=== PATIENT | male | born 1985 | race Two or more races ===

== ENCOUNTER 2019-04-23 21:45 | Emergency (ER) | payer OTHER ==
[2019-04-23] MEDS ORDERED: KETOROLAC 60 MG/2 ML VIAL IM STA (21:55)
--- NOTE | 2019-04-23 22:01 | Emergency Department Record ---
History of Present Illness - General Chief Complaint: Hypertension Stated Complaint: HIGH BP, NEW MEDS Time Seen by Provider: 04/23/19 21:55 Source: Patient Mode of Arrival: Ambulatory Limitations: No limitations - History of Present Illness Initial Comments: 33 yo male presents to ED for evaluation of elevated blood pressure this evening, pressure in the left ear, and a throbbing pain behind his left eye. Patient denies change in vision or injury to the affected area, denies fevers, chills, or recent illness. Patient reports that his BP medication as increased 1 week ago, concerned as his BP is still elevated. MD Complaint: Other Onset/Timin -: Days(s) Timing: Constant History of Same: No History of Trauma: No Severity: Moderate Improves With: Nothing Worsens With: Nothing Associated Symptoms: Denies other symptoms - [place] Coma Scale Eye Response: (4) Open spontaneously Motor Response: (6) Obeys commands Verbal Response: (5) Oriented Renetta Total: 15 - Related Data Allergies Allergy/AdvReac Type Severity Reaction Status Date / Time methylphenidate HCl Allergy Severe aggression Unverified 04/04/19 08:08 [From Ritalin] grass pollen Allergy Mild watery Unverified 04/04/19 08:08 eyes/sneezing chlorine Allergy Mild watery Uncoded 03/20/19 07:34 eyes/ sneezing Review of Systems Constitutional: Denies: Chills, Fever, Malaise, Night sweats Eyes: Reports: Other (Throbbing behind the left eye). Denies: Eye discharge, Eye pain ENT: Denies: Congestion, Epistaxis Respiratory: Denies: Cough, Dyspnea Cardiovascular: Denies: Chest pain, Dyspnea on exertion, Edema Endocrine: Denies: Fatigue, Heat or cold intolerance Gastrointestinal: Denies: Abdominal pain, Nausea, Vomiting Genitourinary: Denies: Incontinence, Retention Musculoskeletal: Reports: Arthralgia (Hands bilaterally). Denies: Back pain, Gout, Joint swelling Skin: Denies: Bruising, Change in color Neurological: Reports: Headache. Denies: Abnormal gait, Confusion, Numbness, Seizure Psychiatric: Denies: Anxiety Hematological/Lymphatic: Denies: Anemia, Blood Clots Physical Exam - General General Appearance: Alert, Oriented x3, Cooperative, Mild distress Limitations: No limitations - Head Head exam: Atraumatic, Normocephalic, Normal inspection Head exam detail: negative: Abrasion, Contusion, Dodge's sign, General tenderness, Hematoma, Laceration - Eye Eye exam: Normal appearance, EOMI. negative: Conjunctival injection, Periorbital swelling, Periorbital tenderness, Scleral icterus - ENT Ear exam: negative: Auricular hematoma, Auricular trauma Nasal Exam: negative: Active bleeding, Discharge, Dried blood, Foreign body Mouth exam: negative: Drooling, Laceration, Muffled voice, Tongue elevation - Neck Neck exam: Normal inspection. negative: Meningismus, Tenderness - Respiratory Respiratory exam: Normal lung sounds bilaterally. negative: Rales, Respiratory distress, Rhonchi, Stridor - Cardiovascular Cardiovascular Exam: Regular rate, Normal rhythm, Normal heart sounds - GI/Abdominal GI/Abdominal exam: Soft. negative: Rebound, Rigid, Tenderness - Rectal Rectal exam: Deferred - exam: Deferred - Extremities Extremities exam: Normal inspection. negative: Pedal edema, Tenderness - Back Back exam: Denies: CVA tenderness (R), CVA tenderness (L) - Neurological Neurological exam: Alert, Normal gait, Oriented X3 - Psychiatric Psychiatric exam: Normal affect, Normal mood - Skin Skin exam: Normal color. negative: Abrasion Type of lesion: negative: abrasion Course Vital Signs 04/23/19 21:51 Temperature 98.4 F Pulse Rate [ 118 H Left] Respiratory 16 Rate Blood Pressure 173/105 [Left] Pulse Ox 97 - Reevaluation(s) Reevaluation #1: 04/23/19 22:37 IOP measured 15 in the left (affected eye) Patient reports headache symptoms are improved as well as this time. Awaiting CT Brain interpretation. Reevaluation #2: 04/23/19 23:31 CT Brain: No acute process Repeat BP is 155/96mmHg, pulse 100. Patient reports continued improvement in his headache symptoms. Patient appears stable for discharge at this time with instructions to follow-up with Radha in 1-3 days as directed. Disposition Disposition: Discharge Clinical Impression: Headache Qualifiers: Headache type: unspecified Headache chronicity pattern: acute headache Intractability: not intractable Qualified Code(s): R51 - Headache Hypertension Qualifiers: Hypertension type: unspecified Qualified Code(s): I10 - Essential (primary) hypertension Disposition: Home, Self-Care Condition: (2) Stable Instructions: Hypertension (ED) Additional Instructions: Return to ED if your symptoms worsen or if you have any concerns. Continue home medications as prescribed. Follow-up with Radha Torres in 3-5 days as directed. Forms: Patient Portal Access Time of Disposition: 23:33 Quality - Quality Measures Quality Measures: N/A - Blood Pressure Screening Does Patient Have Any of the Following: Active Dx of HTN Blood Pressure Classification: Hypertensive Reading Systolic Measurement: 173 Diastolic Measurement: 105 Screening for High Blood Pressure: Patient Exclusion, Hx of HTN [G9744]
[2019-04-23] MEDS ORDERED: PROPARACAINE HCL OPTH 15ML BTL OPTH ONE (22:03)
--- NOTE | 2019-04-26 05:46 | CT SCAN REPORT ---
DATE: 04/23/2019. EXAM: CT OF THE BRAIN WITHOUT CONTRAST. HISTORY: HEADACHE. TECHNIQUE: Sequential axial images were obtained from the foramen magna to the vertex without contrast administration. FINDINGS: Brain volume is normal. No large territorial infarct, hemorrhage, mass effect, or midline shift. No extra-axial fluid collection. The orbits, paranasal sinuses, and mastoid air cells are normal. IMPRESSION: NO ACUTE INTRACRANIAL ABNORMALITY IS APPRECIATED. Job Number: [id number] MTDD
== END 2019-04-23 23:42 | disposition home or self-care (01) ==
LOC: ER 21:45
DX: R51 Headache (principal); I10 Essential (primary) hypertension; H57.12 Ocular pain, left eye
CPT/HCPCS: 70450; 96372; 99283; 99284; J1885

== ENCOUNTER 2019-11-24 20:43 | Emergency (ER) | payer OTHER ==
--- NOTE | 2019-11-24 21:05 | Emergency Department Record ---
History of Present Illness - General Chief complaint: Cold Stated complaint: URI Time Seen by Provider: 11/24/19 20:49 Source: Patient Mode of Arrival: Ambulatory Limitations: No limitations - History of Present Illness Initial comments: 34 yo male presents to ED for evaluation of non-productive cough symptoms and congestion for the past several days. Patient denies fevers, chills, or sore throat symptoms. Patient does report numerous ill contacts at home with similar symptoms, patient denies health problems at his baseline. MD complaint: Other Onset/Timin -: Days(s) Location: Nose Severity: Moderate Quality: Aching Consistency: Intermittent Improves with: None Worsens with: None Associated Symptoms: Cough, Rhinorrhea - Related Data Previous Rx's Medication Instructions Recorded Doxycycline Hyclate 100 mg PO BID #14 cap 11/24/19 Prednisone [Prednisone 20Mg] 20 mg PO BID #10 tab 11/24/19 Allergies Allergy/AdvReac Type Severity Reaction Status Date / Time methylphenidate HCl Allergy Severe aggression Unverified 11/15/19 15:03 [From Ritalin] grass pollen Allergy Mild watery Unverified 11/15/19 15:03 eyes/sneezing chlorine Allergy Mild watery Uncoded 03/20/19 07:34 eyes/ sneezing Travel Screening - Travel/Exposure Within Last 30 Days Have you traveled within the last 30 days?: No - Travel/Exposure Within Last Year Have you traveled outside the [place] in the last year?: No - Additonal Travel Details Have you been exposed to anyone with a communicable illness?: No - Travel Symptoms Symptom Screening: None Review of Systems Constitutional: Denies: Chills, Fever, Malaise, Night sweats Eyes: Denies: Eye discharge, Eye pain ENT: Reports: Congestion. Denies: Ear pain, Epistaxis Respiratory: Reports: Cough. Denies: Dyspnea Cardiovascular: Denies: Dyspnea on exertion, Edema Endocrine: Denies: Fatigue, Heat or cold intolerance Gastrointestinal: Denies: Abdominal pain, Nausea, Vomiting Genitourinary: Denies: Incontinence, Retention Musculoskeletal: Denies: Arthralgia, Back pain Skin: Denies: Bruising, Change in color Neurological: Denies: Abnormal gait, Confusion, Headache, Seizure Psychiatric: Denies: Anxiety Hematological/Lymphatic: Denies: Anemia, Blood Clots Past Medical History - SOCIAL HISTORY Smoking Status: Current every day smoker Alcohol Use: Occasional - RESPIRATORY Hx Respiratory Disorders: No - CARDIOVASCULAR Hx Cardio Disorders: Yes Hx Hypertension: Yes - NEURO Hx Neuro Disorders: No - GI Hx GI Disorders: No - Hx Genitourinary Disorders: No - ENDOCRINE Hx Endocrine Disorders: No - MUSCULOSKELETAL Hx Musculoskeletal Disorders: No - PSYCH Hx Psych Problems: No - HEMATOLOGY/ONCOLOGY Hx Hematology/Oncology Disorders: No Family Medical History Any Significant Family History?: Yes *Cancer Comment: Uncle-Prostate Hx Diabetes: Father, Brother/Sister Hx Heart Disease: Father Hx HTN: Father Physical Exam - General General Appearance: Alert, Oriented x3, Cooperative, Mild distress Limitations: No limitations - Head Head exam: Atraumatic, Normocephalic, Normal inspection Head exam detail: negative: Abrasion, Contusion, Dodge's sign, General tenderness, Hematoma, Laceration - Eye Eye exam: Normal appearance. negative: Conjunctival injection, Periorbital swelling, Periorbital tenderness, Scleral icterus - ENT Ear exam: negative: Auricular hematoma, Auricular trauma Nasal Exam: negative: Active bleeding, Discharge, Dried blood, Foreign body Mouth exam: negative: Drooling, Laceration, Muffled voice, Tongue elevation - Neck Neck exam: Normal inspection. negative: Meningismus, Tenderness - Respiratory Respiratory exam: Normal lung sounds bilaterally. negative: Rales, Respiratory distress, Rhonchi, Stridor - Cardiovascular Cardiovascular Exam: Regular rate, Normal rhythm, Normal heart sounds - GI/Abdominal GI/Abdominal exam: Soft. negative: Rebound, Rigid, Tenderness - Rectal Rectal exam: Deferred - exam: Deferred - Extremities Extremities exam: Normal inspection. negative: Pedal edema, Tenderness - Back Back exam: Denies: CVA tenderness (R), CVA tenderness (L) - Neurological Neurological exam: Alert, Normal gait, Oriented X3 - Psychiatric Psychiatric exam: Normal affect, Normal mood - Skin Skin exam: Normal color. negative: Abrasion Type of lesion: negative: abrasion Course Vital Signs 11/24/19 20:52 Pulse Rate 108 H Respiratory 20 Rate Blood Pressure 166/103 Pulse Ox 97 - Reevaluation(s) Reevaluation #1: 11/24/19 21:08 History and examination appear c/w acute bronchitis Will treat with Doxycycline and Prednisone as directed Patient appears stable for discharge at this time. Disposition Disposition: Discharge Clinical Impression: Acute bronchitis Qualifiers: Bronchitis organism: unspecified organism Qualified Code(s): J20.9 - Acute bronchitis, unspecified Disposition: Home, Self-Care Condition: (2) Stable Instructions: Acute Bronchitis (ED) Additional Instructions: Return to ED if your symptoms worsen or if you have any concerns. Doxycycline and Prednisone as directed. Follow-up with your family doctor in 3-5 days as directed. Prescriptions: Doxycycline Hyclate 100 mg PO BID #14 cap Prednisone [Prednisone 20Mg] 20 mg PO BID #10 tab Forms: Patient Portal Access Time of Disposition: 21:05 Quality - Quality Measures Quality Measures: N/A, Adult Bronchitis (18-64yr) - Adult Bronchitis Quality Measure: Measure #116: Avoidance of ABX w/Adult Bronchitis ICD10 Codes Entered: Yes Is patient being admitted: Yes Avoidance of ABX w/Bronchitis: <ABX neither prescribed nor dispensed> [4124F] - Blood Pressure Screening Does Patient Have Any of the Following: No Blood Pressure Classification: Hypertensive Reading Systolic Measurement: 166 Diastolic Measurement: 103 Screening for High Blood Pressure: < First Hypertensive BP, F/U Documented > [G8950] First Hypertensive Follow-up Interventions: Referral to alternative/primary care provider.
== END 2019-11-24 21:15 | disposition home or self-care (01) ==
LOC: ER 20:43
DX: J20.9 Acute bronchitis, unspecified (principal); F17.210 Nicotine dependence, cigarettes, uncomplicated
CPT/HCPCS: 99283

== ENCOUNTER 2020-01-10 16:17 | Emergency (ER) | payer OTHER ==
[2020-01-10] MEDS ORDERED: 0.9 % SODIUM CHLORIDE 1,000 ML BAG IV ONE (16:34)
[2020-01-10] MEDS ORDERED: ONDANSETRON HCL IV 4 MG/2 ML VIAL IV ONE (16:34)
[2020-01-10] MEDS ORDERED: ACETAMINOPHEN 1,000 MG/100 ML BTL IVPB ONE (16:34)
--- NOTE | 2020-01-10 16:42 | Emergency Department Record ---
History of Present Illness - General Chief Complaint: Abdominal Pain Stated Complaint: LOWER ABD PAIN Time Seen by Provider: 01/10/20 16:26 Source: Patient Mode of Arrival: Ambulatory Limitations: No limitations - History of Present Illness Initial Comments: The patient is here due to LLQ AP for about 24 hours. The pain is sharp and aching and is worse with hitting bumps in the road and sudden movements. The patient denies any nausea or vomiting but he did have some loose stools yesterday. There also has been no fever, dysuria, or back pain. The patient has no hx of similar issues and no hx of any medical problems. MD Complaint: Abdominal pain Onset/Timin -: Days(s) Location: LLQ Radiation: Suprapubic Improves With: Nothing Worsens With: Nothing - Related Data Previous Rx's Medication Instructions Recorded Hydrocodone/Acetaminophen [[place] 1 each PO .EVERY 4-6 HRS PRN #12 01/10/20 5-325 Tablet] tablet Allergies Allergy/AdvReac Type Severity Reaction Status Date / Time methylphenidate HCl Allergy Severe aggression Verified 01/10/20 16:35 [From Ritalin] grass pollen Allergy Mild watery Verified 01/10/20 16:35 eyes/sneezing chlorine Allergy Mild watery Uncoded 01/10/20 16:35 eyes/ sneezing Travel/Exposure Screening - Travel/Exposure Within Last 30 Days Have you traveled within the last 30 days?: No - Travel/Exposure Within Last Year Have you traveled outside the [place] in the last year?: No - Additonal Travel/Exposure Details Have you been exposed to anyone with a communicable illness?: No - Travel Symptoms Symptom Screening: None Review of Systems Constitutional: Denies: Chills, Fever Eyes: Denies: Eye discharge ENT: Denies: Congestion Respiratory: Denies: Cough Past Medical History - SOCIAL HISTORY Smoking Status: Current every day smoker Alcohol Use: Occasional Drug Use: None - RESPIRATORY Hx Respiratory Disorders: No - CARDIOVASCULAR Hx Cardio Disorders: Yes Hx Hypertension: Yes - NEURO Hx Neuro Disorders: No - GI Hx GI Disorders: No - Hx Genitourinary Disorders: No - ENDOCRINE Hx Endocrine Disorders: No - MUSCULOSKELETAL Hx Musculoskeletal Disorders: No - PSYCH Hx Psych Problems: No - HEMATOLOGY/ONCOLOGY Hx Hematology/Oncology Disorders: No Family Medical History Any Significant Family History?: No *Cancer Comment: Uncle-Prostate Hx Diabetes: Father, Brother/Sister Hx Heart Disease: Father Hx HTN: Father Physical Exam - General General Appearance: Alert, Oriented x3, Cooperative, No acute distress - Head Head exam: Atraumatic, Normocephalic, Normal inspection - Eye Eye exam: Normal appearance, PERRL - Neck Neck exam: Normal inspection, Full ROM. negative: Tenderness - Respiratory Respiratory exam: Normal lung sounds bilaterally. negative: Respiratory distre ss - Cardiovascular Cardiovascular Exam: Regular rate, Normal rhythm, Normal heart sounds - GI/Abdominal GI/Abdominal exam: Soft, Normal bowel sounds, Tenderness (There is mild LLQ tenderness to palpation with a very soft abdomen.). negative: Distended, Guarding, Rebound, Rigid - exam: Circumcision. negative: Scrotal swelling, Testicular tenderness - Extremities Extremities exam: Normal inspection, Full ROM, Normal capillary refill. negative: Tenderness Course Vital Signs 01/10/20 16:24 Temperature 98.1 F Pulse Rate 91 H Respiratory 20 Rate Blood Pressure 180/103 Pulse Ox 99 - Reevaluation(s) Reevaluation #1: The patient is doing a lot better at this time and is in much less pain. His repeat temp was 98.4 and on exam his abdomen is soft and nontender. I did discuss the options of staying in the hospital for pain medicines overnight but he would like to go home. Since he received Invanze he does not need any more antibiotics until tomorrow. We will discharge the patient and give him [place] overnight for pain and will have him return at noon tomorrow for recheck of his abdomen and repeat lab work. 01/10/20 18:25 Medical Decision Making - Data Complexity MDM Data: Labs Ordered and/or Reviewed, X-Ray Ordered and/or Reviewed - Lab Data Result diagrams: 01/10/20 16:30 01/10/20 16:30 - Radiology Data Radiology results: Report reviewed (CT: Diverticulitis L colon. Neg for perforation or free air.) Disposition Disposition: Discharge Clinical Impression: Diverticulitis large intestine Qualifiers: Diverticulitis bleeding: without bleeding Diverticulitis complication: without perforation or abscess Qualified Code(s): K57.32 - Diverticulitis of large intestine without perforation or abscess without bleeding Disposition: Home, Self-Care Condition: (2) Stable Instructions: Diverticulitis (ED) Additional Instructions: Please take Motrin and [place] for pain with a stool softener. Please rest and take tomorrow off work and return to the ER at noon for recheck and repeat IV Abx's. Return sooner for worsening pain, fever, vomiting, or bleeding. Prescriptions: Hydrocodone/Acetaminophen [[place] 5-325 Tablet] 1 each PO .EVERY 4-6 HRS PRN #12 tablet PRN Reason: Pain Forms: Patient Portal Access Time of Disposition: 18:30 Quality - Quality Measures Quality Measures: Adult Bronchitis (18-64yr) - Adult Bronchitis Quality Measure: Measure #116: Avoidance of ABX w/Adult Bronchitis ICD10 Codes Entered: Yes View Details: Yes Is patient being admitted: No Avoidance of ABX w/Bronchitis: <ABX neither prescribed nor dispensed> [4124F] - Blood Pressure Screening View Details: Yes Does Patient Have Any of the Following: Active Dx of HTN Blood Pressure Classification: Hypertensive Reading Systolic Measurement: 180 Diastolic Measurement: 103 Screening for High Blood Pressure: Patient Exclusion, Hx of HTN [G9744]
[2020-01-10 16:55] LABS: ABSOLUTE NEUTROPHIL COUNT 9.77; BASO % 0.3 % (0-6); EOS % 1.3 % (0-6); GRAN % 65.7 % (47-80); HEMATOCRIT 45.2 % (42.0-52.0); HEMOGLOBIN 14.8 gm/dl (14.0-18.0); LYMPH % 22.4 % (16-45); MEAN CELL VOLUME 92.6 fl (81-97); MEAN CORPUSCULAR HEMOGLOBIN 30.3 pg (27-33); MEAN CORPUSCULAR HGB CONC 32.7 g/dl (32-36); MEAN PLATELET VOLUME 9.8 fl (7.4-10.4); MONO % 10.3 % (0-9); PLATELET COUNT 298 K/uL (130-400); RED BLOOD COUNT 4.88 M/uL (4.40-5.70); RED CELL DISTRIBUTION WIDTH 13.4 % (11.5-14.5); WHITE BLOOD COUNT W/O DIFF 14.9 K/uL (4.2-12.2)
[2020-01-10 17:02] LABS: URINE APPEARANCE CLEAR; URINE BILIRUBIN NEGATIVE (NEGATIVE); URINE BLOOD SMALL (NEGATIVE); URINE COLOR YELLOW; URINE GLUCOSE (UA) NEGATIVE (NEGATIVE); URINE KETONE NEGATIVE (NEGATIVE); URINE LEUKOCYTE ESTERASE NEGATIVE (NEGATIVE); URINE NITRITE NEGATIVE (NEGATIVE); URINE PROTEIN NEGATIVE (NEGATIVE); URINE UROBILINOGEN 0.2 E.U./dL (0.20 - 1.00)
[2020-01-10 17:10] LABS: BLOOD UREA NITROGEN 12 mg/dL (6-20); CREATININE 0.7 mg/dL (0.7-1.2); EST GLOMERULAR FILTRATION RATE > 60 mL/min
[2020-01-10 17:11] LABS: LIPASE 19 U/L (13-60); TOTAL PROTEIN 7.8 g/dL (6.6-8.7)
[2020-01-10 17:13] LABS: GLUCOSE,RANDOM 104 mg/dL (74-109); URINE EPITHELIAL CELLS NONE SEEN (FEW); URINE RBC 0 - 2 (NONE SEEN); URINE WBC NONE SEEN (0-2/hpf)
[2020-01-10 17:15] LABS: ALB/GLOB RATIO 1.4 (1.1-1.8); ALBUMIN 4.6 g/dL (4.0-5.0); ALT/SGPT 31 U/L (<41); AST/SGOT 16 U/L (10.0-50.0)
[2020-01-10 17:16] LABS: ALKALINE PHOSPHATASE 86 U/L (40-129)
--- NOTE | 2020-01-10 17:45 | CT SCAN REPORT ---
EXAMINATION: CT Abdomen and Pelvis without IV Contrast EXAM DATE: 01/10/2020 5:23 PM TECHNIQUE: Standard protocol CT imaging of the abdomen and pelvis was performed without intravenous c ontrast. INDICATION: LLQ pain COMPARISON: None ENCOUNTER: Not applicable CT ABDOMEN AND PELVIS FINDINGS: Lung Bases: Included extent of the lung bases are clear. Hepatobiliary: The liver has a normal size with a smooth surface. Pancreas: The pancreas is normal. Spleen: The spleen is not enlarged. Adrenals: The adrenal glands are normal. Kidneys, Ureters, & Bladder: Both kidneys have a normal size and morphology. There is no hydronephro sis. 3.2 cm simple cyst lower pole right kidney. Nonobstructing punctate left nephrolithiasis lower p ole. Both ureters have a normal course and caliber and the urinary bladder a normal morphology and un iform wall thickness. No ureteral or bladder calculi are identified. Gastrointestinal: The stomach and small bowel are normal with no obstruction or inflammation. Appendi x is normal. There is focal short segment wall thickening mid to distal left colon in a area with sev eral diverticula. Surrounding inflammatory change is present. There is some thickening of the adjacen t mesocolon. Reproductive Organs: Unremarkable Lymphatic System: There is no adenopathy within the abdomen or pelvis. Vasculature: Normal caliber abdominal aorta Peritoneum: No free fluid, free air, or inflammation Abdominal wall & Musculoskeletal: No suspicious bone lesions. Assessment of the solid organs, soft tissues, and vascular structures is overall limited on noncontra st imaging, IMPRESSION: Focal wall thickening of the left colon in an area of diverticular disease with surrounding them infl ammatory change suggesting diverticulitis. Follow-up to demonstrate complete resolution is recommende d. Additional findings as detailed above NOTE: There is a follow-up recommendation in this report. Dictated by: Miguelito Pack MD on 01/10/2020 5:34 PM. .
[2020-01-10] MEDS ORDERED: KETOROLAC 30 MG/ML VIAL IVP ONE (17:46)
[2020-01-10] MEDS ORDERED: ERTAPENEM SODIUM 1 G in 0.9 % SODIUM CHLORIDE 100ML 100 ML IVPB ONE (17:46)
== END 2020-01-10 18:50 | disposition home or self-care (01) ==
LOC: ER 16:17
DX: K57.32 Diverticulitis of large intestine without perforation or abscess without bleeding (principal); R19.7 Diarrhea, unspecified; I10 Essential (primary) hypertension; F17.210 Nicotine dependence, cigarettes, uncomplicated
CPT/HCPCS: 99284 ×2; 96365; 96366; 96375; 96361; 83690; 85025; 80053; 81001; 74176; J1335; J1885; J2405; J7030